=== PATIENT | female | born 1945 | race Hispanic/Latino ===

== ENCOUNTER 2019-01-29 18:12 | Emergency (ER) | payer MEDICARE, OTHER ==
[~2019-01-29] VITALS: Ht 170.2 cm; Wt 79.4 kg
[2019-01-29] MEDS ORDERED: CEPHALEXIN 500 MG CAP PO NR (19:15)
[2019-01-29] MEDS ORDERED: TETANUS/DIPHTHERIA TOX ADULT 0.5 ML SYR IM ONE (19:15)
[2019-01-29] MEDS ORDERED: HYDROCODONE/APAP 7.5MG-325MG 1 EA TAB PO NR (19:30)
[2019-01-29] MEDS ORDERED: CEFAZOLIN SOD 1 GM VIAL IM NR (19:45)
[2019-01-29] MEDS ORDERED: NEOMYCIN/POLYMYXIN/BACITRACIN 15 GM TUBE TOP ONE (21:00)
[2019-01-29] MEDS ORDERED: NEOMYCIN/POLYMYX/BACITR OINT 0.9 GM PKT ONE (21:21)
--- NOTE | 2019-01-29 21:39 | Diagnostic Imaging Report ---
X-ray right hand 3 views HISTORY: Pain. COMPARISON: None available. FINDINGS: Bones: No acute displaced fracture. Osseous alignment is within normal limits. Low bone mineral density. Joints: The joint spaces are well-maintained. Soft tissues: Soft tissue swelling and superficial defect along the medial aspect of the hand. IMPRESSION: No acute radiographic osseous abnormality. Soft tissue swelling and superficial defect along the medial aspect of the hand. Low bone mineral density. Signed by: Daniel Francis DO on 01/29/2019 9:36 PM
--- OUTSIDE RECORDS SUMMARY | 2019-02-08 10:40 | XMS REPORT ---
[facility] Address Unknown Phone Unavailable Care Team Providers Care Vessel Crew Member Name Role Phone LISSA FLORES Unavailable Unavailable Payers Payer Name Policy Type Policy Number Effective Date Expiration Date Problems This patient has no known problems. Allergies, Adverse Reactions, Alerts Allergy Name Allergy Type Status Severity Reaction(s) Onset Date Inactive Date Treating Clinician Comments propoxyphene HCl DA Active [place] 2009-04-13 00:00:00 ciprofloxacin HCl DA Active [place] 2009-04-13 00:00:00 Sulfa (Sulfonamide Antibiotics) DA Active [place] 2009-04-13 00:00:00 codeine DA Active [place] 2009-04-13 00:00:00 ciprofloxacin DA Active [place] 2009-04-13 00:00:00 Medications This patient has no known medications. Results Test Description Test Time Test Comments Text Results Atomic Results Result Comments HAND 3+ VIEWS RIGHT 2019-01-29 21:34:00 [place] [id number] Patient Name: NASRIN LOCKWOOD MR #: [id number] : 1945 Age/Sex: 73/F Req #: [id number] Adm Physician: Ordered by: LISSA FLORES MD, MD Report #: [id number] Location: ER Room/Bed: Procedure: [id number] DX/HAND 3+ VIEWS RIGHT Exam Date: 01/29/19 Exam Time: 1951 REPORT STATUS: Signed X-ray right hand 3 views HISTORY: Pain. COMPARISON: None available. FINDINGS: Bones: No acute displaced fracture. Osseous alignment is within normal limits. Low bone mineral density. Joints: The joint spaces are well-maintained. Soft tissues: Soft tissue swelling and superficial defect along the medial aspect of the hand. IMPRESSION: No acute radiographic osseous abnormality. Soft tissue swelling and superficial defect along the medial aspect of the hand. Low bone mineral density. Signed by: Daniel Francis DO on 01/29/2019 9:36 PM Dictated By: DANIEL FRANCIS DO 35 Transcribed By: KRISHNA on 01/29/192135 COPY TO: LISSA FLORES
== END 2019-01-29 21:41 | disposition home or self-care (01) ==
LOC: ER 18:12
DX: S61.411A Laceration without foreign body of right hand, initial encounter (principal); S61.216A Laceration without foreign body of right little finger without damage to nail, initial encounter; I10 Essential (primary) hypertension; E03.9 Hypothyroidism, unspecified; I25.10 Atherosclerotic heart disease of native coronary artery without angina pectoris; Z23 Encounter for immunization; Z95.1 Presence of aortocoronary bypass graft; W01.0XXA Fall on same level from slipping, tripping and stumbling without subsequent striking against object, initial encounter; Y92.410 Unspecified street and highway as the place of occurrence of the external cause
CPT/HCPCS: 12002; 73130; 90471; 90714; 99283; J0690